=== PATIENT | female | born 2000 | race Caucasian/White ===

== ENCOUNTER 2024-02-23 15:22 | Emergency (ER) | payer BC ==
[~2024-02-23] VITALS: Ht 170.2 cm; Wt 71.8 kg
[2024-02-23 15:30] VITALS: TEMP 98.4
[2024-02-23] MEDS ORDERED: CEPHALEXIN500 M1 PO (15:47)
[2024-02-23 16:00] VITALS: BP 109/81; PULSE 89
== END 2024-02-23 16:03 | disposition home or self-care (01) ==
LOC: COL.ER 15:22
DX: S61.211A Laceration without foreign body of left index finger without damage to nail, initial encounter (principal); W26.0XXA Contact with knife, initial encounter; Y92.89 Other specified places as the place of occurrence of the external cause; Y99.0 Civilian activity done for income or pay